=== PATIENT | female | born 1955 | race Caucasian/White ===

== ENCOUNTER 2017-06-12 14:32 | Observation (INO) | payer BC ==
[2017-06-12 17:57] LABS: BILIRUBIN,URINE NEGATIVE (NEGATIVE); BLOOD/HEMOGLOBIN,URINE 1+ (NEGATIVE); GLUCOSE, URINE NEGATIVE (NEGATIVE); KETONES,URINE NEGATIVE (NEGATIVE); LEUKOCYTE ESTERASE ,URINE NEGATIVE (NEGATIVE); NITRITES,URINE NEGATIVE (NEGATIVE); PROTEIN,URINE NEGATIVE (NEGATIVE); UROBILINOGEN,URINE NORMAL (NORMAL)
[2017-06-12 18:02] LABS: EOSINOPHILS # (AUTO) 0.2 x10^3/uL (0.0-0.2); MONOCYTES # (AUTO) 0.5 x10^3/uL (0.3-0.8)
[2017-06-12 18:03] LABS: APPEARANCE,URINE HAZY (CLEAR); BACTERIA,URINE TRACE /HPF (NEGATIVE); COLOR,URINE YELLOW (YELLOW); SQUAMOUS EPITHELIAL CELL,UR RARE /HPF (NEGATIVE)
[2017-06-12 18:07] LABS: BASOPHILS # (AUTO) 0.2 X10^3/uL (0.0-0.1); BASOPHILS % (AUTO) 1.5 % (0.2-1.0); EOSINOPHILS % (AUTO) 2.1 % (0.9-2.9); HEMATOCRIT 39.3 % (36.0-47.0); HEMOGLOBIN 13.6 g/dL (12.0-16.0); LYMPHOCYTES # (AUTO) 2.7 X10^3/uL (1.3-2.9); LYMPHOCYTES % (AUTO) 22.5 % (21.0-51.0); MEAN CORPUSCULAR HEMOGLOBIN 29.3 pg (27.0-34.0); MEAN CORPUSCULAR HGB CONC 34.5 g/dL (33.0-35.0); MEAN CORPUSCULAR VOLUME 84.9 fL (80.0-100.0); MEAN PLATELET VOLUME 8.5 fL (7.4-11.0); MONOCYTES % (AUTO) 4.5 % (0.0-13.0); NEUTROPHILS # (AUTO) 8.3 x10^3/uL (2.2-4.8); NEUTROPHILS % (AUTO) 69.4 % (42.0-75.0); PLATELET COUNT 312 X10^3/uL (150.0-450.0); RED BLOOD COUNT 4.63 X10^6/uL (3.5-5.4); RED CELL DISTRIBUTION WIDTH 13.5 % (11.6-16.5)
[2017-06-12 18:11] LABS: ALANINE AMINOTRANSFERASE 23 Units/L (12-78); ALBUMIN 3.8 g/dL (3.4-5.0); ALKALINE PHOSPHATASE 68 Units/L (46-116); ASPARTATE AMINO TRANSFERASE 18 Units/L (15-37); BLOOD UREA NITROGEN 9 mg/dL (7-18); CALCIUM 9.1 mg/dL (8.5-10.1); CARBON DIOXIDE 32.5 mmol/L (21-32); CHLORIDE 100 mmol/L (98-107); CREATININE 0.88 mg/dL (0.55-1.02); SODIUM 139 mmol/L (136-145); TOTAL PROTEIN 7.2 g/dL (6.4-8.2); eGFR BLACK RACES > 60 (>60); eGFR NON BLACK RACES > 60 (>60)
[2017-06-12 18:16] LABS: PLATELET MORPHOLOGY COMMENT NORMAL (NORMAL)
[2017-06-12 18:33] VITALS: BMI 28.1
[2017-06-12] MEDS ORDERED: AMBIEN PO PRN (18:40)
[2017-06-12] MEDS ORDERED: NS 100 ML IV 100 ML IV ONE (18:49)
[2017-06-12] MEDS: NS 1000 ML 1,000 ML IV SCH (19:37)
[2017-06-12] MEDS: ROCEPHIN VIAL 1 GM 1 GM in NS 50 ML IV + SPIKE MINIBAG* 50 ML IV SCH (19:37)
[2017-06-12] MEDS: ZITHROMAX INJ 500 MG VIAL 500 MG in NS 250 ML IV 250 ML IV SCH (20:37)
[2017-06-12] MEDS: NORCO 5/325 MG TAB PO PRN (21:27)
[2017-06-12] MEDS: NICOTINE PATCH TD SCH (21:27)
--- NOTE | 2017-06-12 21:37 | CT ---
HISTORY: Dizziness, headache, unsteady gait Study: CT brain with and without contrast Comparison: None Technique: Multiple axial images of the brain were obtained from the skull base to the vertex with and without a dministration of IV contrast. Dose reduction techniques including Automated Exposure Control (AEC) a nd adjustment of mA and kV were utilized. Findings: The brain parenchyma is within normal limits for patient's age. No evidence of acute hemorrhage, mid line shift, mass effect or abnormal extra-axial fluid collection. The ventricular system is symmetri c and nondilated. The soft tissues and osseous structures are unremarkable. The visualized paranasal sinuses are clear. IMPRESSION: 1.No acute intracranial abnormality. Reported By:
--- NOTE | 2017-06-12 23:22 | RAD ---
EXAM: Chest X-ray INDICATION: Dizziness and headache, shortness of breath COMPARISION: No prior TECHNIQUE: Single view FINDINGS: The lungs are clear and the lung volumes are within normal limits. No pleural effusion or pneumothora x. The cardiac silhouette and mediastinum are normal. The regional skeleton is intact. IMPRESSION: No acute abnormality identified Reported By:
[2017-06-13 05:19] LABS: ALANINE AMINOTRANSFERASE 18 Units/L (12-78); ALBUMIN 3.1 g/dL (3.4-5.0); ALKALINE PHOSPHATASE 54 Units/L (46-116); ASPARTATE AMINO TRANSFERASE 13 Units/L (15-37); BLOOD UREA NITROGEN 10 mg/dL (7-18); CALCIUM 8.5 mg/dL (8.5-10.1); CARBON DIOXIDE 30.6 mmol/L (21-32); CHLORIDE 105 mmol/L (98-107); COR CA(FOR HYPOALB) 9.2 mg/dL (8.5-10.1); CREATININE 0.75 mg/dL (0.55-1.02); SODIUM 141 mmol/L (136-145); eGFR BLACK RACES > 60 (>60); eGFR NON BLACK RACES > 60 (>60)
[2017-06-13 06:07] LABS: BASOPHILS # (AUTO) 0.1 X10^3/uL (0.0-0.1); BASOPHILS % (AUTO) 0.5 % (0.2-1.0); EOSINOPHILS # (AUTO) 0.5 x10^3/uL (0.0-0.2); EOSINOPHILS % (AUTO) 5.1 % (0.9-2.9); HEMATOCRIT 35.5 % (36.0-47.0); HEMOGLOBIN 12.2 g/dL (12.0-16.0); LYMPHOCYTES # (AUTO) 3.3 X10^3/uL (1.3-2.9); LYMPHOCYTES % (AUTO) 32.7 % (21.0-51.0); MEAN CORPUSCULAR HEMOGLOBIN 29.3 pg (27.0-34.0); MEAN CORPUSCULAR HGB CONC 34.3 g/dL (33.0-35.0); MEAN CORPUSCULAR VOLUME 85.4 fL (80.0-100.0); MEAN PLATELET VOLUME 8.7 fL (7.4-11.0); MONOCYTES # (AUTO) 0.6 x10^3/uL (0.3-0.8); MONOCYTES % (AUTO) 6.2 % (0.0-13.0); NEUTROPHILS # (AUTO) 5.5 x10^3/uL (2.2-4.8); NEUTROPHILS % (AUTO) 55.5 % (42.0-75.0); PLATELET COUNT 274 X10^3/uL (150.0-450.0); RED BLOOD COUNT 4.16 X10^6/uL (3.5-5.4); RED CELL DISTRIBUTION WIDTH 13.4 % (11.6-16.5)
[2017-06-13] MEDS: NS 1000 ML 1,000 ML IV SCH (07:37)
[2017-06-13] MEDS: NICOTINE PATCH TD SCH (09:50)
[2017-06-13] MEDS: ZITHROMAX INJ 500 MG VIAL 500 MG in NS 250 ML IV 250 ML IV SCH (09:51)
[2017-06-13] MEDS: ROCEPHIN VIAL 1 GM 1 GM in NS 50 ML IV + SPIKE MINIBAG* 50 ML IV SCH (09:51)
[2017-06-13] MEDS: NORCO 5/325 MG TAB PO PRN (09:53)
[2017-06-13] MEDS ORDERED: CLARITIN-D 12 HOUR TAB PO SCH (10:00)
[2017-06-13] MEDS ORDERED: ANTIVERT TAB 25 MG PO SCH (10:00)
--- NOTE | 2017-06-13 10:53 | DR.UPDATE ---
H&P Update History and Physical Update: WAS SEEN IN THE OFFICE ON 06/12/17. A H&P WAS COMPLETED PRIOR TO ADMISSION. PATIENT HAS BEEN SEEN AND EXAMINED WITH NO CHANGES NOTED TO H&P. Changes noted: NO Yes with the following:
[2017-06-13 12:10] LABS: RHEUMATOID FACTOR NEGATIVE (NEGATIVE)
[2017-06-13 14:06] VITALS: BP 109/57
[2017-06-18 06:35] LABS: ANTI-NUCLEAR ANTIBODY TEST None Detected (None Detected)
== END 2017-06-13 13:50 | disposition home or self-care (01) ==
LOC: MED/SURG 14:32
PROVIDERS: ADMIT Internal Medicine; ATTEND Internal Medicine
DX: R26.81 Unsteadiness on feet (principal); R42 Dizziness and giddiness; R53.1 Weakness; R20.0 Anesthesia of skin; D72.828 Other elevated white blood cell count; R79.82 Elevated C-reactive protein (CRP); F32.89 Other specified depressive episodes; F41.8 Other specified anxiety disorders; Z66 Do not resuscitate; I10 Essential (primary) hypertension
CPT/HCPCS: 36415; 70470; 71010; 80053; 81001; 85025; 85652; 86140; 86308; 86430; 87040; 87502; A4222; G0378; J0456; J0696